=== PATIENT | female | born 1985 | race American Indian/Alaskan Native ===

== ENCOUNTER 2018-06-03 17:47 | Emergency (ER) | payer BC ==
[2018-06-03 17:51] VITALS: BMI 36.3
[2018-06-03] MEDS ORDERED: Naproxen 550 mg Tab PO STA (18:05)
[2018-06-03] MEDS ORDERED: Naproxen 550 mg Tab PO ONE (18:26)
--- NOTE | 2018-06-03 18:37 | C.PDOC ---
History Of Present Illness Pt states she tripped and fell yesterday, landing on her left knee. Time Seen by Provider: 06/03/18 18:02 Chief Complaint (Nursing): Lower Extremity Problem/Injury History Per: Patient Onset/Duration Of Symptoms: Days (1) Current Symptoms Are (Timing): Still Present Severity: Moderate Additional History Per: Prior Records - Knee Description Of Injury: Fell Alleviating Factor(s): Ice Therapy, OTC Pain Medication Past Medical History Reviewed: Historical Data, Nursing Documentation, Vital Signs Vital Signs: Last Vital Signs Temp 98.8 F 06/03/18 17:52 Pulse 86 06/03/18 17:52 Resp 18 06/03/18 17:52 BP 122/85 06/03/18 17:52 Pulse Ox 100 06/03/18 18:37 - Medical History PMH: No Chronic Diseases Surgical History: No Surg Hx Family History: States: Unknown Family Hx - Social History Hx Tobacco Use: No Hx Alcohol Use: No Hx Substance Use: No - Immunization History Hx Tetanus Toxoid Vaccination: Yes Hx Influenza Vaccination: No Hx Pneumococcal Vaccination: No Review Of Systems Except As Marked, All Systems Reviewed And Found Negative. Constitutional: Negative for: Fever, Weakness Cardiovascular: Negative for: Chest Pain Respiratory: Negative for: Shortness of Breath Gastrointestinal: Negative for: Vomiting, Abdominal Pain Musculoskeletal: Negative for: Neck Pain, Back Pain Skin: Negative for: Rash Neurological: Negative for: Weakness, Numbness Physical Exam - Physical Exam Appears: Non-toxic, No Acute Distress Skin: Normal Color, Warm, Dry, No Rash Head: Atraumatic, Normacephalic Eye(s): bilateral: Normal Inspection, PERRL, EOMI Neck: Normal ROM, Supple Extremity: Normal ROM, Tenderness (anterior left knee), No Calf Tenderness, No Deformity Pulses: Left Dorsalis Pedis: Normal Neurological/Psych: Oriented x3, Normal Motor, Normal Sensation ED Course And Treatment O2 Sat by Pulse Oximetry: 100 Pulse Ox Interpretation: Normal - Other Rad Left knee x-rays X-Ray: Viewed By Me, Read By Radiologist Interpretation: IMPRESSION: Small joint effusion. No demonstrated fracture or dislocation. Mild medial tibial femoral compartment degenerative changes. Reassessment Condition: Improved Disposition Counseled Patient/Family Regarding: Studies Performed, Diagnosis, Need For Followup, Rx Given - Disposition Referrals: Rosy Hays MD [Staff Provider] - Disposition: HOME/ ROUTINE Disposition Time: 18:49 Condition: STABLE Additional Instructions: Rest. Ice. [place] wrap. Elevate your leg. Follow up with an orthopedic doctor if still symptomatic in 1 week. Return to the ER if you develop worsening of symptoms or if you have any other concerns. Prescriptions: Naproxen [Naprosyn] 1 tab PO BID PRN #20 tab PRN Reason: Pain Instructions: Knee Sprain (DC) Forms: [employer] (Tajik) - Clinical Impression Clinical Impression: Left knee injury, Fall
--- NOTE | 2018-06-03 18:47 | RAD ---
PROCEDURE: Left Knee Radiographs. HISTORY: Pain. COMPARISON: None. FINDINGS: BONES: No acute fracture. JOINTS: Medial tibial femoral compartment narrowing with mild degenerative spurring. JOINT EFFUSION: Small joint effusion. OTHER FINDINGS: None. IMPRESSION: Small joint effusion. No demonstrated fracture or dislocation. Mild medial tibial femoral compartment degenerative changes.
[2018-06-03 18:58] VITALS: BP 122/81; PULSE 82; RESP 16; TEMP 98.2; O2SAT 99
== END 2018-06-03 18:57 | disposition home or self-care (01) ==
LOC: C.ER 17:47
DX: S89.92XA Unspecified injury of left lower leg, initial encounter (principal); W01.0XXA Fall on same level from slipping, tripping and stumbling without subsequent striking against object, initial encounter

== ENCOUNTER 2018-09-26 18:46 | Emergency (ER) | payer OTHER, BC ==
[2018-09-26 18:46] VITALS: BMI 36.3
[2018-09-26 19:17] VITALS: BP 123/89; PULSE 88; TEMP 100.2; O2SAT 100
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
[2018-09-26] MEDS ORDERED: Lidocaine 5% Patch TD ONE (20:41)
[2018-09-26 21:36] VITALS: RESP 20
[2018-09-27] MEDS ORDERED: Lidocaine 5% Patch TD SCH (10:00)
== END 2018-09-26 21:35 | disposition home or self-care (01) ==
LOC: SUPCPDRO 18:46 → C.ER 18:46
DX: S13.4XXS Sprain of ligaments of cervical spine, sequela (principal); S33.5XXS Sprain of ligaments of lumbar spine, sequela; V49.5 Passenger injured in collision with other and unspecified motor vehicles in traffic accident
CPT/HCPCS: 96372; 99284; J1885